=== PATIENT | female | born 1950 | race Caucasian/White ===

== ENCOUNTER 2019-08-31 08:13 | Day surgery (SDC) | payer OTHER, BC ==
[2019-08-31 09:34] LABS: BASO % 1.5 % (0-2.0); EOS % 12.7 % (0-4.5); HEMATOCRIT 34.3 % (32.4-45.2); HEMOGLOBIN 11.4 GM/dL (10.7-15.3); MCH 31.5 pg (25.7-33.7); MCHC 33.3 g/dl (32.0-36.0); MEAN CELL VOLUME 94.5 fl (80-96); MONO % 13.6 % (3.8-10.2); NEUT % 39.2 % (42.8-82.8); PLATELET COUNT 164 K/MM3 (134-434); RBC 3.63 M/mm3 (3.60-5.2); RDW 16.5 % (11.6-15.6); WHITE BLOOD COUNT 5.3 K/mm3 (4.0-10.0)
[2019-08-31] MEDS ORDERED: BORTEZOMIB (VELCADE) 2.5 MG/ML SUB-Q INJECTION SQ ONE (10:00)
[2019-08-31] MEDS ORDERED: DEXAMETHASONE 4 MG TABLET (FP) PO ONE (10:00)
[2019-08-31 10:05] LABS: ALBUMIN 3.5 g/dl (3.4-5.0); BILIRUBIN,DIRECT 0.2 mg/dL (0.0-0.2); BILIRUBIN,TOTAL 0.6 mg/dL (0.2-1); BLOOD UREA NITROGEN 23.8 mg/dL (7-18); CALCIUM 8.6 mg/dL (8.5-10.1); CREATININE 0.7 mg/dL (0.55-1.3); POTASSIUM 3.5 mmol/L (3.5-5.1); TOT PROT 6.4 g/dl (6.4-8.2)
[2019-08-31 16:10] VITALS: BP 130/74; PULSE 71; TEMP 98.2
== END 2019-08-31 10:30 | disposition home or self-care (01) ==
LOC: JCHEMO 08:13
PROVIDERS: ATTEND Internal Medicine Hematology & Oncology
DX: Z51.11 Encounter for antineoplastic chemotherapy (principal); C90.00 Multiple myeloma not having achieved remission
CPT/HCPCS: 36415; 80053; 80076; 85025; 96401; J9041

== ENCOUNTER 2019-09-14 08:13 | Day surgery (SDC) | payer OTHER, BC ==
[2019-09-14 08:58] LABS: BASO % 1.4 % (0-2.0); EOS % 4.8 % (0-4.5); HEMOGLOBIN 11.8 GM/dL (10.7-15.3); LYMPH % 31.2 % (8-40); MCH 31.9 pg (25.7-33.7); MCHC 33.6 g/dl (32.0-36.0); MEAN PLT VOLUME 10.1 fl (7.5-11.1); MONO % 10.2 % (3.8-10.2); NEUT % 52.4 % (42.8-82.8); PLATELET COUNT 220 K/MM3 (134-434); RBC 3.69 M/mm3 (3.60-5.2); WHITE BLOOD COUNT 6.1 K/mm3 (4.0-10.0)
[2019-09-14] MEDS ORDERED: DEXAMETHASONE 4 MG TABLET (FP) PO ONE (09:00)
[2019-09-14] MEDS ORDERED: BORTEZOMIB (VELCADE) 2.5 MG/ML SUB-Q INJECTION SQ ONE (09:00)
[2019-09-14 09:44] LABS: ALBUMIN 3.6 g/dl (3.4-5.0); BILIRUBIN,DIRECT 0.2 mg/dL (0.0-0.2); BLOOD UREA NITROGEN 17.8 mg/dL (7-18); CALCIUM 8.9 mg/dL (8.5-10.1); CREATININE 0.9 mg/dL (0.55-1.3); POTASSIUM 3.5 mmol/L (3.5-5.1); TOT PROT 6.4 g/dl (6.4-8.2)
[2019-09-14 13:36] VITALS: BP 149/65; PULSE 79; TEMP 98.4
== END 2019-09-14 09:45 | disposition home or self-care (01) ==
LOC: JCHEMO 08:13 → J7W 08:14 → JCHEMO 08:14
PROVIDERS: ATTEND Internal Medicine Hematology & Oncology
DX: Z51.11 Encounter for antineoplastic chemotherapy (principal); C90.00 Multiple myeloma not having achieved remission
CPT/HCPCS: 36415; 80048; 80076; 85025; 96401; J9041

== ENCOUNTER 2019-09-21 08:27 | Day surgery (SDC) | payer OTHER, BC ==
[2019-09-21] MEDS ORDERED: BORTEZOMIB (VELCADE) 2.5 MG/ML SUB-Q INJECTION SQ ONE (09:00)
[2019-09-21] MEDS ORDERED: DEXAMETHASONE 4 MG TABLET (FP) PO ONE (09:00)
[2019-09-21 10:00] LABS: EOS % 7.7 % (0-4.5); HEMATOCRIT 35.5 % (32.4-45.2); LYMPH % 28.5 % (8-40); MCH 31.9 pg (25.7-33.7); MCHC 33.7 g/dl (32.0-36.0); MEAN CELL VOLUME 94.8 fl (80-96); MEAN PLT VOLUME 10.5 fl (7.5-11.1); MONO % 11.3 % (3.8-10.2); NEUT % 51.5 % (42.8-82.8); PLATELET COUNT 194 K/MM3 (134-434); RBC 3.74 M/mm3 (3.60-5.2); RDW 16.8 % (11.6-15.6); WHITE BLOOD COUNT 5.9 K/mm3 (4.0-10.0)
[2019-09-21 10:07] VITALS: BP 119/72; PULSE 73; TEMP 98.5
[2019-09-21 10:24] LABS: ALBUMIN 3.6 g/dl (3.4-5.0); BILIRUBIN,DIRECT 0.2 mg/dL (0.0-0.2); BILIRUBIN,TOTAL 0.8 mg/dL (0.2-1); BLOOD UREA NITROGEN 18.5 mg/dL (7-18); CALCIUM 8.7 mg/dL (8.5-10.1); CREATININE 0.8 mg/dL (0.55-1.3); POTASSIUM 3.8 mmol/L (3.5-5.1); TOT PROT 6.6 g/dl (6.4-8.2)
== END 2019-09-21 09:30 | disposition home or self-care (01) ==
LOC: JCHEMO 08:27
PROVIDERS: ATTEND Internal Medicine Hematology & Oncology
DX: Z51.11 Encounter for antineoplastic chemotherapy (principal); C90.00 Multiple myeloma not having achieved remission; I10 Essential (primary) hypertension
CPT/HCPCS: 36415; 80048; 80076; 85025; 86769; 86769-59; 96401; J9041

== ENCOUNTER 2019-09-28 08:33 | Day surgery (SDC) | payer OTHER, BC ==
[2019-09-28 09:33] LABS: BASO % 0.8 % (0-2.0); EOS % 6.7 % (0-4.5); HEMATOCRIT 34.5 % (32.4-45.2); HEMOGLOBIN 11.4 GM/dL (10.7-15.3); MCH 31.8 pg (25.7-33.7); MCHC 33.2 g/dl (32.0-36.0); MEAN CELL VOLUME 95.7 fl (80-96); MEAN PLT VOLUME 10.3 fl (7.5-11.1); MONO % 13.4 % (3.8-10.2); NEUT % 52.1 % (42.8-82.8); PLATELET COUNT 187 K/MM3 (134-434); RDW 16.2 % (11.6-15.6); WHITE BLOOD COUNT 5.2 K/mm3 (4.0-10.0)
[2019-09-28 09:52] LABS: ALBUMIN 3.5 g/dl (3.4-5.0); BILIRUBIN,DIRECT 0.2 mg/dL (0.0-0.2); BILIRUBIN,TOTAL 0.6 mg/dL (0.2-1); BLOOD UREA NITROGEN 19.3 mg/dL (7-18); CALCIUM 9.1 mg/dL (8.5-10.1); CREATININE 0.8 mg/dL (0.55-1.3); MAGNESIUM 2.2 mg/dL (1.8-2.4); POTASSIUM 3.8 mmol/L (3.5-5.1); TOT PROT 6.6 g/dl (6.4-8.2)
[2019-09-28] MEDS ORDERED: BORTEZOMIB (VELCADE) 2.5 MG/ML SUB-Q INJECTION SQ ONE (10:30)
[2019-09-28] MEDS ORDERED: DEXAMETHASONE 4 MG TABLET (FP) PO ONE (10:30)
[2019-09-28 13:37] VITALS: BP 130/63; PULSE 71; TEMP 97.3
== END 2019-09-28 11:00 | disposition home or self-care (01) ==
LOC: JCHEMO 08:33
PROVIDERS: ATTEND Internal Medicine Hematology & Oncology
DX: Z51.11 Encounter for antineoplastic chemotherapy (principal); C90.00 Multiple myeloma not having achieved remission
CPT/HCPCS: 36415; 80048; 80076; 83735; 85025; 96401; J9041

== ENCOUNTER 2019-10-05 08:16 | Day surgery (SDC) | payer OTHER, BC ==
[2019-10-05 09:59] LABS: HEMATOCRIT 33.1 % (32.4-45.2); HEMOGLOBIN 11.1 GM/dL (10.7-15.3); MCH 32.3 pg (25.7-33.7); MCHC 33.6 g/dl (32.0-36.0); MEAN CELL VOLUME 96.1 fl (80-96); MEAN PLT VOLUME 10.4 fl (7.5-11.1); PLATELET COUNT 195 K/MM3 (134-434); RBC 3.44 M/mm3 (3.60-5.2); RDW 15.7 % (11.6-15.6); WHITE BLOOD COUNT 4.4 K/mm3 (4.0-10.0)
[2019-10-05] MEDS ORDERED: DEXAMETHASONE 4 MG TABLET (FP) PO ONE (10:00)
[2019-10-05] MEDS ORDERED: BORTEZOMIB (VELCADE) 2.5 MG/ML SUB-Q INJECTION SQ ONE (10:00)
[2019-10-05 10:23] LABS: BLOOD UREA NITROGEN 18.2 mg/dL (7-18); CALCIUM 8.9 mg/dL (8.5-10.1); CREATININE 0.8 mg/dL (0.55-1.3); POTASSIUM 4.1 mmol/L (3.5-5.1)
[2019-10-05 11:29] LABS: ANISOCYTOSIS 0; MACROCYTOSIS 0; PLATELET ESTIMATE NORMAL
[2019-10-05 13:56] VITALS: BP 117/66; PULSE 67; TEMP 98.7
== END 2019-10-05 12:30 | disposition home or self-care (01) ==
LOC: JCHEMO 08:16
PROVIDERS: ATTEND Internal Medicine Hematology & Oncology
DX: Z51.11 Encounter for antineoplastic chemotherapy (principal); C90.00 Multiple myeloma not having achieved remission
CPT/HCPCS: 36415; 80048; 85027; 96401; J9041

== ENCOUNTER 2019-10-12 08:23 | Day surgery (SDC) | payer OTHER, BC ==
[2019-10-12] MEDS ORDERED: BORTEZOMIB (VELCADE) 2.5 MG/ML SUB-Q INJECTION SQ ONE (10:00)
[2019-10-12] MEDS ORDERED: DEXAMETHASONE 4 MG TABLET (FP) PO ONE (10:00)
[2019-10-12] MEDS ORDERED: PANTOPRAZOLE 40 MG TABLET PO STA (10:19)
[2019-10-12 14:23] VITALS: BP 112/43; PULSE 70; TEMP 98.2
== END 2019-10-12 10:30 | disposition home or self-care (01) ==
LOC: JCHEMO 08:23
PROVIDERS: ATTEND Internal Medicine Hematology & Oncology
DX: Z51.11 Encounter for antineoplastic chemotherapy (principal); C90.00 Multiple myeloma not having achieved remission
CPT/HCPCS: 96401; J9041